=== PATIENT | female | born 1955 | race African-American/Black ===

== ENCOUNTER 2024-05-16 13:09 | Outpatient (RCR) | payer MEDICARE, MEDICAID, SELFPAY ==
[2024-05-16] VITALS (7 sets, daily range): BP systolic 119–143; BP diastolic 74–97; PULSE 53–62; RESP 14–18; TEMP 36–37.2; O2SAT 93–99
--- NOTE | 2024-05-16 15:56 | ONC.NURNOTE ---
nsg to nsg report called to med surg. pt transfered at 1610 to finish her infuusion. report also given to Dr. Carlita Hanson
--- NOTE | 2024-05-16 17:42 | PC.NURSE ---
End of transfusion - Pt alert, oriented, cooperative. Tolerated infusion with no reaction during and post transfusion. IV removed with catheter intact. Vitally stable, pt denied pain, SOB, N/V. Pt left unit with daughter at approximately 1720 via wheelchair.
== END 2024-11-12 23:59 | disposition home or self-care (01) ==
LOC: CCIC 13:09
PROVIDERS: Visit Provider Clinical Nurse Specialist
DX: D46.22 Refractory anemia with excess of blasts 2 (principal)
CPT/HCPCS: 36415; 36430; 86850; 86870; 86900; 86901; 86922; G0463; P9016